=== PATIENT | female | born 2000 | race African-American/Black ===

== ENCOUNTER 2022-02-27 12:26 | Emergency (ER) | payer OTHER ==
[~2022-02-27] VITALS: Ht 152.4 cm; Wt 48.0 kg
[2022-02-27 12:33] VITALS: BP 115/86
[2022-02-27 17:15] LABS: BASOPHILS % 0.6 % (0.0-2.0); EOSINOPHILS % 0.4 % (0.0-5.0); HEMATOCRIT. 38.3 % (36.0-48.0); HEMOGLOBIN. 13.1 g/dL (12.0-16.0); LYMPHOCYTES % 45.7 % (20.0-50.0); MEAN CORPUSCULAR HEMOGLOBIN 29.8 pg (28.0-32.0); MEAN CORPUSCULAR VOLUME 87.3 fL (81.0-99.0); MEAN PLATELET VOLUME 8.5 fl (7.4-10.4); MONOCYTES % 8.7 % (2.0-8.0); NEUTROPHILS % 44.6 % (40.0-76.0); PLATELET 195 x1000/uL (130-400); RED BLOOD CELL COUNT 4.38 mill/uL (4.2-5.4); RED CELL DISTRIBUTION WIDTH 13.8 % (11.6-14.6)
[2022-02-27 17:19] LABS: CHLORIDE 107 mEq/L (98-107)
[2022-02-27 17:33] LABS: MONOTEST NEGATIVE (NEGATIVE)
[2022-02-27] MEDS ORDERED: AZIT250T12 MT (19:39)
== END 2022-02-27 19:55 | disposition home or self-care (01) ==
LOC: ER 12:26
DX: R59.1 Generalized enlarged lymph nodes (principal); B34.9 Viral infection, unspecified
CPT/HCPCS: 36415; 80053; 85025; 86308; 99283